=== PATIENT | male | born 1995 | race Two or more races ===

== ENCOUNTER 2018-11-08 10:49 | Emergency (ER) | payer OTHER ==
[2018-11-08 11:09] VITALS: TEMP 98; BMI 24.4
[2018-11-08] MEDS ORDERED: SODIUM CHLORIDE 1,000 ML IV STA (12:41)
[2018-11-08] MEDS ORDERED: ONDANSETRON 4 MG/2 ML VIAL IVPUSH ONE (12:41)
[2018-11-08 12:44] LABS: BASO % 0.6 % (0-2.0); EOS % 0.7 % (0-4.5); HEMATOCRIT 45.7 % (35.4-49); LYMPH % 10.8 % (8-40); MCH 29.8 pg (25.7-33.7); MCHC 34.9 g/dl (32.0-35.9); MEAN CELL VOLUME 85.4 fl (80-96); MEAN PLT VOLUME 8.9 fl (7.5-11.1); MONO % 10.3 % (3.8-10.2); NEUT % 77.6 % (42.8-82.8); PLATELET COUNT 237 K/MM3 (134-434); RBC 5.35 M/mm3 (4.00-5.60); RDW 12.8 % (11.9-15.9); WHITE BLOOD COUNT 8.1 K/mm3 (4.0-10.0)
[2018-11-08] MEDS ORDERED: ONDANSETRON 4 MG/2 ML VIAL ONE (12:57)
[2018-11-08 13:25] LABS: ALBUMIN 4.5 g/dl (3.4-5.0); ALK PHOS 91 U/L (45-117); ANION GAP 6 MMOL/L (8-16); BILIRUBIN,TOTAL 0.6 mg/dL (0.2-1); BLOOD UREA NITROGEN 14 mg/dL (7-18); CALCIUM 9.3 mg/dL (8.5-10.1); CHLORIDE 102 mmol/L (98-107); CO2 27 mmol/L (21-32); CREATININE 0.9 mg/dL (0.55-1.3); GLUCOSE,RANDOM 82 mg/dL (74-106); LIPASE 92 U/L (73-393); POTASSIUM 4.2 mmol/L (3.5-5.1); SGOT/AST 20 U/L (15-37); SGPT/ALT 27 U/L (13-61); SODIUM 135 mmol/L (136-145); TOT PROT 8.3 g/dl (6.4-8.2)
[2018-11-08 15:08] VITALS: BP 124/72; PULSE 106
--- NOTE | 2018-11-08 15:47 | PDOC ---
History of Present Illness - General Chief Complaint: Nausea/Vomiting Stated Complaint: NAUSEA/DIARRHEA Time Seen by Provider: 11/08/18 12:02 History Source: Patient Exam Limitations: No Limitations - History of Present Illness Initial Comments: 11/08/18 15:46 CHIEF COMPLAINT: Vomiting and diarrhea HISTORY OF PRESENT ILLNESS: This is an otherwise healthy 23-year-old male who presents with 3 days of nausea/vomiting, diarrhea, and generalized abdominal pain. He denies international travel, sick contacts, eating in restaurants. He reports having several episodes of both vomiting and diarrhea daily, and that today he is unable to keep down fluids. He denies fevers/chills, dysuria, hematemesis/hematochezia, or any other symptoms. Vital signs on arrival are unremarkable. REVIEW OF SYSTEMS: GENERAL/CONSTITUTIONAL: No fever or chills. No weakness. No weight change. HEAD, EYES, EARS, NOSE AND THROAT: No change in vision. No ear pain or discharge. No sore throat. CARDIOVASCULAR: No chest pain or palpitations. RESPIRATORY: No cough, wheezing, or shortness of breath. GASTROINTESTINAL: See HPI. GENITOURINARY: No dysuria, frequency, or change in urination. MUSCULOSKELETAL: No joint or muscle swelling or pain. No neck or back pain. SKIN: No rash or easy bruising. NEUROLOGIC: No headache, vertigo, loss of consciousness, or loss of sensation. PSYCHIATRIC: No depression or anxiety. ENDOCRINE: No increased thirst. No abnormal weight change. HEMATOLOGIC/LYMPHATIC: No anemia, easy bleeding, or history of blood clots. ALLERGIC/IMMUNOLOGIC: No hives or skin allergy. No latex allergy. PHYSICAL EXAM: GENERAL: The patient is awake, alert, and fully oriented, in no acute distress. HEAD: Normal with no signs of trauma. ENT: Pupils equal, round and reactive to light, extraocular movements intact, sclera anicteric, conjunctiva clear. Neck supple. LUNGS: Clear to auscultation bilaterally. Normal excursion. No respiratory distress or use of accessory muscles. CV: RRR, S1/S2, no MRG. Cap refill < 2 sec. ABDOMEN: Soft, non-distended, non-tender even to deep palpation. EXTREMITIES: Normal range of motion, no edema. NEUROLOGICAL: Normal speech, normal gait. CN II-XII grossly intact. PSYCH: Normal mood, normal affect. SKIN: Warm, dry, normal turgor, no rashes or lesions noted. 11/08/18 15:47 Past History - Past Medical History Allergies/Adverse Reactions: Allergies Allergy/AdvReac Type Severity Reaction Status Date / Time Penicillins Allergy Verified 11/08/18 11:06 Home Medications: Ambulatory Orders Ondansetron [Zofran Odt -] 4 mg SL TID PRN #21 od.tablet 11/08/18 COPD: No - Immunization History Immunization Up to Date: No - Suicide/Smoking/Psychosocial Hx Smoking History: Never smoked Hx Alcohol Use: No Drug/Substance Use Hx: No *Physical Exam - Vital Signs Last Vital Signs Temp Pulse Resp BP Pulse Ox 98.0 F 106 H 18 124/72 100 11/08/18 11:07 11/08/18 15:08 11/08/18 15:08 11/08/18 15:08 11/08/18 15:08 Moderate Sedation - Procedure Monitoring Vital Signs: Procedure Monitoring Vital Signs Temperature 98.0 F 11/08/18 11:07 Pulse Rate 106 H 11/08/18 15:08 Respiratory Rate 18 11/08/18 15:08 Blood Pressure 124/72 11/08/18 15:08 O2 Sat by Pulse Oximetry (%) 100 11/08/18 15:08 ED Treatment Course - LABORATORY CBC & Chemistry Diagram: 11/08/18 12:30 11/08/18 12:30 - ADDITIONAL ORDERS Additional order review: Laboratory Results 11/08/18 12:30 Sodium 135 L Potassium 4.2 Chloride 102 Carbon Dioxide 27 Anion Gap 6 L BUN 14 Creatinine 0.9 Creat Clearance w eGFR > 60 Random Glucose 82 Calcium 9.3 Total Bilirubin 0.6 AST 20 ALT 27 Alkaline Phosphatase 91 Total Protein 8.3 H Albumin 4.5 Lipase 92 11/08/18 12:30 RBC 5.35 MCV 85.4 MCHC 34.9 RDW 12.8 MPV 8.9 Neutrophils % 77.6 Lymphocytes % 10.8 Monocytes % 10.3 H Eosinophils % 0.7 Basophils % 0.6 - Medications Given in the ED: ED Medications Discontinued Medications Generic Name Dose Route Start Last Admin Trade Name Freq PRN Reason Stop Dose Admin Sodium Chloride 1,000 mls @ 1,000 mls/hr 11/08/18 12:41 11/08/18 13:00 Normal Saline - IV 11/08/18 13:40 1,000 mls/hr ASDIR STA Administration Ondansetron HCl 4 mg 11/08/18 12:41 11/08/18 13:01 Zofran Injection IVPUSH 11/08/18 12:42 4 mg ONCE ONE Administration Medical Decision Making - Medical Decision Making 11/08/18 15:48 A/P: 23-year-old male with vomiting, diarrhea, and abdominal pain. No abdominal tenderness on exam. -Labs including CBC, CMP, lipase unremarkable -Zofran 4 mg IV push and normal saline 1 L bolus given Patient re-evaluated, pain improved and tolerating PO. Will dc with Zofran and followup instructions. *DC/Admit/Observation/Transfer Diagnosis at time of Disposition: Vomiting and diarrhea Abdominal pain Qualifiers: Abdominal location: generalized Qualified Code(s): R10.84 - Generalized abdominal pain - Discharge Dispostion Disposition: HOME Condition at time of disposition: Improved Decision to Admit order: No - Prescriptions Prescriptions: Ondansetron [Zofran Odt -] 4 mg SL TID PRN #21 od.tablet PRN Reason: vomiting - Referrals Referrals: [facility] [place] [facility] [Provider Group] - Patient Instructions Printed Discharge Instructions: DI for Viral Gastroenteritis -- Adult, Gastroenteritis Diet Additional Instructions: -Rest and stay well-hydrated -Slowly introduce a bland diet (instructions enclosed) -Follow up with primary care (appointment enclosed) -Return here if you are unable to keep down fluids, if pain is worsening, or for any other concerning symptoms - Post Discharge Activity Forms/Work/School Notes: Back to Work
== END 2018-11-08 16:09 | disposition home or self-care (01) ==
LOC: JER 10:49
PROC: 3E0337Z Introduction of Electrolytic and Water Balance Substance into Peripheral Vein, Percutaneous Approach (ICD-10-PCS; principal; 2018-11-08)
PROC: 3E033GC Introduction of Other Therapeutic Substance into Peripheral Vein, Percutaneous Approach (ICD-10-PCS; 2018-11-08)
DX: A08.4 Viral intestinal infection, unspecified (principal); B97.89 Other viral agents as the cause of diseases classified elsewhere
CPT/HCPCS: 36415; 80053; 83690; 85025; 99282-25; J7030